=== PATIENT | female | born 1975 | race Asian ===

== ENCOUNTER 2023-07-19 07:04 | Emergency (ER) | payer BC, SELFPAY ==
[2023-07-19 07:06] VITALS: BP 118/74
[2023-07-19 07:24] VITALS: BMI 26.5
[2023-07-19 07:31] LABS: Urine Albumin Negative (Neg - Trace); Urine Bilirubin Negative (Negative); Urine Character Clear (Clear); Urine Color Yellow; Urine Glucose Negative (Negative); Urine Ketone Negative (Negative); Urine Leukocyte Trace (Negative); Urine Nitrite Negative (Negative); Urine Occult Blood Negative (Negative); Urine Specific Gravity 1.005 (<1.030); Urine Urobilinogen Negative (Neg - 1+)
--- NOTE | 2023-07-19 07:44 | ED.GENMED ---
History of Present Illness
General
Chief Complaint: Urinary Symptoms
Source: patient
Exam Limitations: none
Time Seen by Provider: 07/19/23 07:28
Nursing documentation reviewed up to this point in time: agreed with
Travel History
Have you had any contact with someone who has COVID-19?: No
Do you have any symptoms of coronavirus? Fever > 100 degrees, chills, cough, shortness of breath, sore throat, loss of taste or smell, muscle aches, or headache?: No
History of Present Illness
History of Present Illness:
48-year-old female presents emergency department complaining of intermittent left flank pain with urinary burning. Started 1 week ago.
Past History
Past History
ED Past Medical History: None
ED Past Surgical History: None
Social History
Tobacco: Non-smoker
Alcohol: None
Drug: None
Living: with family
Review of Systems
Review of Systems
Allergies reviewed?: Yes
All Other Systems: Not applicable
Constitutional: Reports no symptoms
EENT: Reports no symptoms
Respiratory: Reports no symptoms
Cardiac: Reports no symptoms
ABD/GI: Reports no symptoms
: Reports dysuria and flank pain
Musculoskeletal: Reports no symptoms
Skin: Reports no symptoms
Neurological: Reports no symptoms
Endocrine: Reports no symptoms
Hematologic/Lymphatic: Reports no symptoms
Psychiatric: Reports no symptoms
Phy Exam
Physical Exam
Physical Exam:
Physical Exam
General: no apparent distress, not acutely ill
Neck: supple. no meningeal signs. normal posterior pharynx
Heart: s1/s2 regular rate and rhythm, no murmur. equal radial
pulses.
HEENT: Pupils equal round reactive to light, EOMI
Lungs: no acute respiratory distress. clear bilaterally
Abdomen: normal bowel sounds. not tender. no CVAT
Neuro: alert and oriented. no focal neurological deficits cranial nerves II through XII intact
Skin: no rash
Psychiatric: well kept. interactive and cooperative
Extremities: no edema. no calf tenderness. negative homans. good distal pulses
Course
Orders/Labs/Results
Orders:
Orders
07/19/23 07:21
HCG, Urine Qualitative Screen Urgent
Date Specimen was Collected: 07/19/23
Time Specimen was Collected: 07:21
Urinalysis Reflex To Culture Urgent
Date Specimen was Collected: 07/19/23
Time Specimen was Collected: 07:21
Urine Microscopic Reflex Cult Urgent
07/19/23 07:33
Add On- LAB Urgent
Tests Added?: urine hcg
07/19/23 07:43
CT Abd/pel Without Iv Or Oral Urgent
Comment:
Reason For Exam: left flank pain, 1 week ago
07/19/23 07:45
Complete Blood Count/With Diff Urgent
Comprehensive Metabolic Panel Urgent
Abnormal Lab Results
07/19/23 07/19/23
07:21 07:45
MCV 73.3 L fL
(81.0-99.0)
MCH 26.0 L pg
(27.0-31.0)
Creatinine 0.5 L mg/dL
(0.6-1.0)
Glucose 101 H mg/dl
(70-99)
Leukocyte Esterase Rfl Trace A
(Negative)
Urine Bacteria (Reflex) Few A
(Negative)
07/19/23 07:45
07/19/23 07:45
Vital Signs
Initial and Last Documented VS:
Initial Vital Signs
Temp Pulse Resp BP Pulse Ox
98.1 F 91 16 118/74 100
07/19/23 07:06 07/19/23 07:06 07/19/23 07:06 07/19/23 07:06 07/19/23 07:06
Last Documented Vital Signs
Temp Pulse Resp BP Pulse Ox
98.1 F 91 16 118/74 100
07/19/23 07:06 07/19/23 07:06 07/19/23 07:06 07/19/23 07:06 07/19/23 07:06
MDM/Problems Addressed
Differential Diagnosis Includes:
Ureteral calculus, UTI
MDM/Problems Addressed:
48-year-old female with left flank pain, no signs UTI or kidney stone.
*Radiology
Radiology exam reviewed: radiology read reviewed (CT abdomen pelvis no acute findings)
*Pulse Oximetry
Patient hypoxic: no
*EKG
Interpreted by ED Provider?: NA
*Cnc Maintenance Technician Interpretation
Rate: Cnc Maintenance Technician- N/A
*Critical Care Note
Total Time (30-74mins, 75-104mins- exclusive of procedures): Not Applicable
Patient Management
Social determinants of health affecting care: Living situation and Strong social support
Escalation/DeEscalation of care consider admission/obs:
Admit not indicated
ED Attending Note
-
Portions of this chart may have been created with voice recognition software.� Occasional wrong word or��sound alike� substitutions may have occurred due to the inherent limitations of voice recognition software.
Discharge Plan
Departure
Patient Disposition: Home (Routine Discharge)
Date of Disposition: 07/19/23
Time of Disposition: 09:40
Patient with high blood pressure during this ER visit?: No
Discharge Problem:
Acute left flank pain
Instructions: Flank Pain ED
Prescriptions:
No Action
Iron
1 tab PO DAILY
Referrals:
Joe Hicks MD [Family Provider] - Call in 1-3 days for appt
Interventions
Interventions:
*Risk Screen - Suicide Last Done: 07/19/23 07:23
*General Assessment Last Done: 07/19/23 07:24
*Neglect/Abuse Screening Last Done: 07/19/23 07:23
ED- Fall Risk Assessment Last Done: 07/19/23 07:24
*ED COVID-19 Vaccine History Last Done: 07/19/23 07:06
ED-Female Genitourinary Assessment Last Done: 07/19/23 07:26
[2023-07-19 07:52] LABS: Urine Bacteria Few (Negative); Urine Red Blood Cell 0-2 /HPF (0-2)
[2023-07-19 07:56] LABS: % Basophils 0.8 % (0-2); % Eosinophils 1.1 % (0-6); % Immature Granulocytes 0.1 % (0-0.5); % Lymphocytes 44.4 % (20.5-51.1); % Monocytes 5.6 % (1.7-9.3); Absolute Basophils 0.1 10^3/uL (0-0.2); Absolute Eosinophils 0.1 10^3/uL (0-0.7); Absolute Lymphocytes 3.2 10^3/uL (1.2-3.4); Absolute Monocytes 0.4 10^3/uL (0.1-0.6); Absolute Neutrophils 3.5 10^3/uL (1.4-6.5); Hematocrit 38.4 % (37.0-47.0); Hemoglobin 13.6 g/dL (12.0-16.0); Mean Corp Hgb Conc. 35.4 g/dL (33.0-37.0); Mean Corpuscular Volume 73.3 fL (81.0-99.0); Mean Platelet Volume 9.5 fL (7.4-10.4); Nucleated Red Blood Cells % 0 %; Platelet Count 369 10^3/uL (130-400); Red Blood Cell Count 5.24 10^6/uL (4.20-5.40); Red Cell Dist. Width 14.2 % (11.5-14.5); White Blood Cell Count 7.3 10^3/uL (4.8-10.8)
[2023-07-19 07:56] LABS: HCG, Urine Qualitative Screen Negative
[2023-07-19 08:20] LABS: ALT (SGPT) 30 U/L (0-35); AST (SGOT) 29 U/L (14-36); Albumin 4.3 g/dl (3.5-5.0); Alkaline Phosphatase 101 U/L (38-126); Blood Urea Nitrogen 7 mg/dl (7-17); Calcium 9.7 mg/dl (8.4-10.2); Carbon Dioxide 24 mmol/L (22-30); Chloride 100 mmol/L (98-107); Estimated Creatinine Clearance 104 ml/min; Glucose 101 mg/dl (70-99); Potassium 4.2 mmol/L (3.5-5.1); Sodium 136 mmol/L (135-145); Total Bilirubin 0.6 mg/dl (0.2-1.3); Total Protein 7.5 g/dl (6.3-8.2); eGFR > 60.00
== END 2023-07-19 09:46 | disposition home or self-care (01) ==
LOC: EMR 07:04
PROVIDERS: EMERGENCY PHYSICIAN Emergency Medicine; FAMILY PHYSICIAN Family Medicine
DX: R10.9 Unspecified abdominal pain (principal); R30.0 Dysuria
CPT/HCPCS: 99284; 74176; 80053; 81003; 81015; 81025; 85025

== ENCOUNTER 2024-12-07 06:27 | Emergency (ER) | payer BC, SELFPAY ==
[2024-12-07 06:29] VITALS: BP 144/86
--- NOTE | 2024-12-07 07:55 | ED.GENMED ---
History of Present Illness
General
Chief Complaint: Throat Problem
Source: patient
Exam Limitations: none
Time Seen by Provider: 12/07/24 07:07
Nursing documentation reviewed up to this point in time: agreed with
History of Present Illness
History of Present Illness:
49 y/o F with no sig PMH
here with pain and swelling L neck/under mandible x 1 week
says she had pain under her tongue and cheek in that area as well and felt swollen which would get worse while eating
she went to [facility] a few days later and was swabbed for strep and told it was probably viral but pt says her swelling seemed to get worse, carlos with eating; so she made ENT appt but it is not until next week
over the past few days she has felt that the swelling is now making it harder to swallow and even maybe harder to breathe
sh ewas reading she coul dhave a tumor
but she also did try remedies for sialolithiasis, sucking on lemonheads and drinking more water
this doesn't seem to be making things better, though the tongue soreness has improved
no fever, chills, weight loss, rash, voice change, smoking, vomiting
no dental pain
Past History
Past History
ED Past Medical History: None
ED Past Surgical History: None
Social History
Tobacco: Non-smoker
Alcohol: None
Drug: None
Living: with family
Phy Exam
Physical Exam
Physical Exam:
GENERAL: Alert , in no apparent distress
EYE: pupils equal and reactive
NECK: Supple
ENT: o/p clr, mmm.
normal dentition
no sublingual erythema, or lesions
no periapical swelling
normal secretions
normal phonation
sublingual space soft, nontender
no palpable stone
L parotid region may be slightly full
very minimaly tender L submandibular BALDO; no skin chnages, approx 3 cm
no other BALDO
CARDIAC: Regular rate and rhythm .
LUNGS: Clear breath sounds bilaterally, no acute respiratory distress, no wheezes/rales/rhonchi
SKIN: Warm and dry, skin intact.
PSYCH: Normal and appropriate interaction.
ANXIOUS
Course
Orders/Labs/Results
Orders:
Orders
12/07/24 07:52
CT Neck With Iv Contrast Urgent
Comment:
Reason For Exam: neck swelling L side x 1 week
12/07/24 07:53
Test Result ONCE
12/07/24 08:06
Complete Blood Count/With Diff Urgent
Comprehensive Metabolic Panel Urgent
HCG, Serum Qualitative Screen Urgent
12/07/24 10:19
Amoxicillin 875 mg/Clav 125 mg [Augmentin 875 mg/125 mg] 1 tablet PO NOW STA
Ibuprofen [Motrin] 600 mg PO NOW STA
Abnormal Lab Results
12/07/24
08:06
Hct 36.7 L %
(37.0-47.0)
MCV 74.4 L fL
(81.0-99.0)
MCH 25.6 L pg
(27.0-31.0)
Creatinine 0.5 L mg/dL
(0.6-1.0)
12/07/24 08:06
12/07/24 08:06
Vital Signs
Initial and Last Documented VS:
Initial Vital Signs
Temp Pulse Resp BP Pulse Ox
36.6 C 80 18 144/86 100
12/07/24 06:29 12/07/24 06:29 12/07/24 06:29 12/07/24 06:29 12/07/24 06:29
Last Documented Vital Signs
Temp Pulse Resp BP Pulse Ox
36.6 C 62 20 117/80 99
12/07/24 06:29 12/07/24 10:42 12/07/24 10:42 12/07/24 10:42 12/07/24 11:00
MDM/Problems Addressed
Differential Diagnosis Includes:
lymphadenitis, salivary gland stone, parotidits
MDM/Problems Addressed:
49 y/o F
waxing and waning L submandibular swelling slince last week
swabbed for strep, neg
had tongue pain/soreness but saw no lesions
no dental issues
the pain and swelling seems worse with eating
has been sucking on sour candy without change
now feeling more anxious,trouble swallowing and breathing
selfmedicated with keflex that she had left over
s ent appt
on exam small BALDO L submandibular reigon, no ludwigs
normal breathing/phonation
noobvious sialolithaisis;
parotid does not really appear enlarged
no obvious dental infection
likely reactive BALDO
pt is very anxious
requestin ct scan
ct shows small BALDO
will cover with augmentin
f/u ent
*Pulse Oximetry
SaO2: 100
Patient hypoxic: no (100)
*Critical Care Note
Total Time (30-74mins, 75-104mins- exclusive of procedures): Not Applicable
ED Attending Note
-
Portions of this chart may have been created with voice recognition software.� Occasional wrong word or��sound alike� substitutions may have occurred due to the inherent limitations of voice recognition software.
Discharge Plan
Departure
Patient Disposition: Home (Routine Discharge)
Date of Disposition: 12/07/24
Time of Disposition: 10:42
Patient with high blood pressure during this ER visit?: No
Condition: Fair
Discharge Problem:
Acute lymphadenitis
Instructions: Swollen lymph nodes in adults
Prescriptions:
New
amoxicillin-pot clavulanate 875-125 mg tablet
1 tab PO BID Qty: 14 0RF
No Action
Iron
1 tab PO DAILY
Referrals:
UNKNOWN - PT DOES,NOT KNOW [Family Provider]
Activity Restrictions/Additional Instructions:
YOU HAVE A SMALL SWOLLEN LYMPH NODE IN YOUR NECK WHICH IS NOT COMPROMISING YOUR AIRWAY AND THERE IS NO CONCERNING OTHER FINDINGS
STOP THE KEFLEX
TRY AUGMENTIN TWICE A DAY FOR 7 DAYS
SEE THE ENT PLANNED
RETURN FOR: SIGNIFICANT PAIN OR WROSENING SWELLING, FEVER, SKIN CHANGES, OR ANY CONCERNS
STYA HYDRATED
Interventions
Interventions:
*Risk Screen - Suicide Last Done: 12/07/24 06:29
*General Assessment Last Done: 12/07/24 11:00
*Neglect/Abuse Screening Last Done: 12/07/24 06:29
*ED- Fall Risk Assessment Last Done: 12/07/24 11:00
*ED COVID-19 Vaccine History Last Done: 12/07/24 10:43
*Nursing Disposition Last Done: 12/07/24 11:00
ED-EENT Assessment Last Done: 12/07/24 11:00
ED- Pulmonary Assessment Last Done: 12/07/24 11:00
Discharge Date and Time
Discharge Date/Time: 12/07/24 11:00
Print Language: KOREAN
[2024-12-07 08:08] VITALS: BMI 27.6
[2024-12-07 08:14] LABS: Hematocrit 36.7 % (37.0-47.0); Hemoglobin 12.6 g/dL (12.0-16.0); Mean Corp Hgb Conc. 34.3 g/dL (33.0-37.0); Mean Corpuscular Volume 74.4 fL (81.0-99.0); Nucleated Red Blood Cells % 0 %; Platelet Count 315 10^3/uL (130-400); Red Cell Dist. Width 14.4 % (11.5-14.5)
[2024-12-07 08:28] LABS: HCG, Serum Qualitative Screen Negative
[2024-12-07 08:35] LABS: ALT (SGPT) 32 U/L (0-35); AST (SGOT) 27 U/L (14-36); Albumin 4.6 g/dl (3.5-5.0); Alkaline Phosphatase 88 U/L (38-126); Blood Urea Nitrogen 7 mg/dl (7-17); Calcium 8.9 mg/dl (8.4-10.2); Carbon Dioxide 24 mmol/L (22-30); Chloride 107 mmol/L (98-107); Estimated Creatinine Clearance 105 ml/min; Glucose 97 mg/dl (70-99); Potassium 3.8 mmol/L (3.5-5.1); Sodium 139 mmol/L (135-145); Total Protein 7.8 g/dl (6.3-8.2); eGFR > 60.00
[2024-12-07] MEDS: MOTRIN 600 MG PO (10:38)
[2024-12-07] MEDS: AUGMENTIN 875 MG/125 MG 1 TABLET PO (10:39)
[2024-12-07 10:42] VITALS: BP 117/80
== END 2024-12-07 11:00 | disposition home or self-care (01) ==
LOC: EMR 06:27
PROVIDERS: Physician Assistant; EMERGENCY PHYSICIAN Emergency Medicine
DX: L04.9 Acute lymphadenitis, unspecified (principal); R22.1 Localized swelling, mass and lump, neck; M54.2 Cervicalgia; R13.10 Dysphagia, unspecified
CPT/HCPCS: 99284; 70491; 80053; 84703; 85025; Q9967

== ENCOUNTER → 2025-04-07 14:57 | Outpatient (REF) | payer BC, SELFPAY | LOC: WDC 14:57 | PROVIDERS: ATTENDING PHYSICIAN Hospitalist | DX: Z12.31 Encounter for screening mammogram for malignant neoplasm of breast (principal) | CPT/HCPCS: 77063; 77067 ==